=== PATIENT | female | born 1960 | race Caucasian/White ===

== ENCOUNTER 2024-11-18 08:49 | Observation (INO) ==
[2024-11-18] MEDS ORDERED: IOPAMIDOL 100 ML BOTTLE IV ONE (08:50)
[2024-11-18 09:39] LABS: Basophils # (Auto) 0.04 K/mcL (0.00-0.30); Basophils % (Auto) 0.3 % (0.0-2.0); Eosinophils # (Auto) 0.03 K/mcL (0.00-0.70); Eosinophils % (Auto) 0.2 % (0.0-7.0); Hemoglobin 13.3 g/dL (11.2-15.7); Lymphocytes # (Auto) 2.65 K/mcL (1.50-4.80); Lymphocytes % (Auto) 19.2 % (15.5-49.0); Mean Cell Volume 93.4 fL (80.0-100.0); Mean Corpuscular HGB Conc 32.4 g/dL (31.0-36.0); Mean Platelet Volume 12.3 fL (8.8-12.5); Monocytes # (Auto) 0.89 K/mcL (0.10-0.90); Monocytes % (Auto) 6.4 % (1.0-12.0); Neutrophils % (Auto) 73.7 % (38.0-78.0); Platelet Count 162 K/mcL (140-440); RBC 4.39 M/mcL (3.59-5.38); Red Cell Distribution Width 13.2 % (11.5-14.5); WBC 13.8 K/mcL (4.5-11.0)
[2024-11-18 09:48] LABS: ALT/SGPT 17 U/L (<40); AST/SGOT 19 U/L (<32); Albumin 4.2 gm/dL (3.2-5.2); Albumin/Globulin Ratio 1.4 (1.0-2.3); Alkaline Phosphatase 90 U/L (39-117); Bilirubin,Total 0.9 mg/dL (0.1-1.0); Blood Urea Nitrogen 19 mg/dL (8-23); Calcium 9.1 mg/dL (8.6-10.4); Carbon Dioxide 23 mmol/L (22-30); Chloride 102 mmol/L (96-108); Globulin 2.9 gm/dL (2.2-3.7); Glomerular Filtration Rate 78; Glucose 114 mg/dL (70-105); Potassium 3.5 mmol/L (3.3-5.1); Sodium 140 mmol/L (133-145)
[2024-11-18 09:52] LABS: Partial Thromboplastin Time 30.8 sec (20.0-37.0); Prothrombin Time 13.4 sec (11.9-14.5)
[2024-11-18] MEDS: ASPIRIN 81 MG TAB.CHEW CHEWED ONE (10:09)
[2024-11-18] MEDS: CLOPIDOGREL 300 MG TABLET PO ONE (10:09)
[2024-11-18] MEDS ORDERED: POLYETHYLENE GLYCOL 3350 17 GM PACKET PO PRN (12:37)
[2024-11-18] MEDS ORDERED: POTASSIUM CHLORIDE 20 MEQ TABLET PO PRN ×2 (12:37)
[2024-11-18] MEDS ORDERED: METOCLOPRAMIDE 10 MG/2 ML VIAL IV PRN (12:37)
[2024-11-18] MEDS ORDERED: SENNOSIDES 1 TABLET PO PRN (12:37)
[2024-11-18] MEDS ORDERED: MAGNESIUM SULFATE 2 GM/50 ML BAG IV PRN (12:37)
[2024-11-18] MEDS ORDERED: ACETAMINOPHEN 325 MG TABLET PO PRN (12:37)
[2024-11-18] MEDS ORDERED: IPRATROPIUM/ALBUTEROL 3 ML AMPUL.NEB NEB PRN (12:37)
[2024-11-18] MEDS ORDERED: ONDANSETRON 4 MG/2 ML VIAL IV PRN (12:37)
[2024-11-18] MEDS ORDERED: POTASSIUM CHLORIDE 40 MEQ in DEXTROSE 5% IN WATER 500 ML IV PRN (12:37)
[2024-11-18] MEDS ORDERED: traMADol 50 MG TABLET PO PRN (14:12)
[2024-11-18] MEDS ORDERED: ALPRAZolam 0.5 MG TABLET PO PRN (14:12)
[2024-11-18] MEDS: 0.9 % SODIUM CHLORIDE 1,000 ML IV ONE (14:40)
[2024-11-18 14:44] LABS: Appearance,Urine Clear (Clear); Bacteria,Urine Few /hpf (0); Bilirubin,Urine Negative (Negative); Color,Urine Yellow; Glucose,Urine (UA) 100 mg/dL (Negative); Ketones,Urine Negative (Negative); Leukocyte Esterase,Urine Negative /uL (Negative); Nitrate,Urine Negative (Negative); Protein,Urine Trace mg/dL (Negative); Urine Blood Moderate ery/mcL (Negative); Urine RBC 20 /hpf (0-3); Urine Squamous Epithelial Cell 11 /hpf (0-4); Urine WBC 3 /hpf (0-4)
[2024-11-18] MEDS ORDERED: HYDROCORTISONE AS SCH (21:00)
[2024-11-18] MEDS ORDERED: NEOMYCIN AS SCH (21:00)
[2024-11-18] MEDS ORDERED: [UNRECOGNIZED DRUG - OTHER] AS SCH (21:00)
[2024-11-18] MEDS ORDERED: CIPROFLOXACIN/DEXAMETH OTIC BOTTLE 7.5ML AD SCH (21:00)
[2024-11-18] MEDS: POLYMYXIN AS SCH (22:19)
[2024-11-18] MEDS: DOCUSATE SODIUM 100 MG CAPSULE PO SCH (22:19)
[2024-11-18] MEDS: NEOMYCIN AS SCH (22:19)
[2024-11-18] MEDS: [UNRECOGNIZED DRUG - OTHER] AS SCH (22:19)
[2024-11-18] MEDS: ATORVASTATIN 40 MG TABLET PO SCH (22:20)
[2024-11-18] MEDS: 0.9 % SODIUM CHLORIDE 10 ML SYRINGE IV SCH (23:35)
[2024-11-19 06:34] LABS: ALT/SGPT 13 U/L (<40); AST/SGOT 15 U/L (<32); Albumin 3.6 gm/dL (3.2-5.2); Albumin/Globulin Ratio 1.6 (1.0-2.3); Alkaline Phosphatase 70 U/L (39-117); Bilirubin,Direct 0.2 mg/dL (<0.3); Bilirubin,Total 0.5 mg/dL (0.1-1.0); Blood Urea Nitrogen 18 mg/dL (8-23); Calcium 8.5 mg/dL (8.6-10.4); Carbon Dioxide 22 mmol/L (22-30); Chloride 107 mmol/L (96-108); Globulin 2.2 gm/dL (2.2-3.7); Glomerular Filtration Rate 92; Glucose 111 mg/dL (70-105); Lactate Dehydrogenase 143 U/L (135-225); Phosphorous 2.6 mg/dL (2.5-4.5); Potassium 3.7 mmol/L (3.3-5.1); Sodium 140 mmol/L (133-145); Triglycerides 70 mg/dL (<150); Uric Acid 3.9 mg/dL (2.5-8.0)
[2024-11-19 06:42] LABS: Basophils # (Auto) 0.04 K/mcL (0.00-0.30); Basophils % (Auto) 0.4 % (0.0-2.0); Eosinophils # (Auto) 0.06 K/mcL (0.00-0.70); Eosinophils % (Auto) 0.6 % (0.0-7.0); Hematocrit 36.2 % (34.1-44.9); Hemoglobin 11.8 g/dL (11.2-15.7); Lymphocytes # (Auto) 1.98 K/mcL (1.50-4.80); Lymphocytes % (Auto) 18.7 % (15.5-49.0); Mean Cell Volume 93.5 fL (80.0-100.0); Mean Corpuscular HGB Conc 32.6 g/dL (31.0-36.0); Mean Platelet Volume 11.8 fL (8.8-12.5); Monocytes # (Auto) 0.67 K/mcL (0.10-0.90); Monocytes % (Auto) 6.3 % (1.0-12.0); Neutrophils % (Auto) 73.7 % (38.0-78.0); Platelet Count 77 K/mcL (140-440); RBC 3.87 M/mcL (3.59-5.38); Red Cell Distribution Width 13.3 % (11.5-14.5); WBC 10.6 K/mcL (4.5-11.0)
[2024-11-19] MEDS: ENOXAPARIN 40 MG/0.4 ML SYRINGE SQ SCH (09:12)
[2024-11-19] MEDS: CLOPIDOGREL 75 MG TABLET PO SCH (09:24)
[2024-11-19] MEDS: ASPIRIN 81 MG TAB.CHEW PO SCH (09:26)
[2024-11-19] MEDS: SERTRALINE 100 MG TABLET PO SCH (09:26)
[2024-11-19 12:33] LABS: HDL Cholesterol 48 mg/dL (>40); LDL Cholesterol,Calculated 65 mg/dL (<100); Non-HDL Cholesterol 79 mg/dL (<130); Triglycerides 72 mg/dL (<150)
== END 2024-11-19 11:10 | disposition home or self-care (01) ==
LOC: ICU 08:49 → ED 08:49 → ICU 12:29
PROVIDERS: ADMIT Internal Medicine; ATTEND Internal Medicine